=== PATIENT | female | born 1960 | race Caucasian/White ===

== ENCOUNTER → 2022-05-24 | Outpatient (CLI) | payer OTHER | LOC: LAB 07:43 → LAB SHORT 07:43 → PLD 07:43 | DX: Z12.83 Encounter for screening for malignant neoplasm of skin (principal); L82.1 Other seborrheic keratosis | CPT/HCPCS: 88305 ==

== ENCOUNTER → 2023-12-25 | Outpatient (CLI) | payer OTHER ==
[2023-12-26 16:42] LABS: HEPATITIS C AB CIA INTERP Negative (Negative); HEPATITIS C ANTIBODY CIA INDEX 0.02 IV
== END ==
LOC: LAB SHORT 14:15 → LAB 14:15
PROVIDERS: Family Medicine
DX: Z11.59 Encounter for screening for other viral diseases (principal)
CPT/HCPCS: 86803

== ENCOUNTER 2024-12-26 08:35 | Inpatient (IN) | payer MEDICARE, OTHER ==
[~2024-12-26 08:35] MED LIST: HYDHCL25 PO; SERT100 PO
[2024-12-26] MEDS ORDERED: Ibuprofen 600 MG Tab PO PRN (11:05)
[2024-12-26] MEDS ORDERED: Ondansetron 4 MG SoluTab MM PRN (11:05)
[2024-12-26] MEDS ORDERED: Polyethylene Glycol 3350 17 gm PO PRN (11:05)
[2024-12-26] MEDS ORDERED: TraZODone HCl 50 MG Tab PO PRN (11:05)
[2024-12-26] MEDS ORDERED: DiphenhydrAMINE HCl 50 MG Cap PO PRN (11:05)
[2024-12-26] MEDS ORDERED: OLANZapine ODT 10 MG Tab MM PRN (11:05)
[2024-12-26] MEDS ORDERED: LORazepam 2 MG Tab PO PRN (11:05)
[2024-12-26] MEDS ORDERED: FLU VACC TS2024-25(6MOS UP)/PF 45 MCG/0.5 ML SYRINGE IM SCH (11:05)
[2024-12-26] MEDS ORDERED: DiphenhydrAMINE HCl 50 MG/ML 1ML Vial IV PRN (11:10)
[2024-12-26] MEDS ORDERED: Acetaminophen 325 MG TABLET PO PRN (11:10)
[2024-12-26] MEDS ORDERED: Calcium Carbonate 500 MG Tab Chew PO PRN (11:10)
[2024-12-26] MEDS ORDERED: Aluminum Hydroxide 320MG/5ML 473 ML PO PRN (11:10)
[2024-12-26] MEDS ORDERED: Melatonin 3 MG Tab PO PRN (11:10)
[2024-12-26] MEDS ORDERED: SERT100 PO (11:24)
[2024-12-27] MEDS ORDERED: Multivitamins 1 Tab PO SCH (09:00)
== END 2024-12-26 12:51 | disposition home or self-care (01) | DRG 881 ==
LOC: BHU 08:35
PROVIDERS: ADMIT Psychiatry & Neurology Psychiatry
DX: F32.A Depression, unspecified (principal); R45.851 Suicidal ideations; F41.9 Anxiety disorder, unspecified; Z79.899 Other long term (current) drug therapy; F12.90 Cannabis use, unspecified, uncomplicated

== ENCOUNTER → 2025-03-30 | Outpatient (CLI) | payer MEDICARE, OTHER | LOC: LAB SHORT 18:16 → LAB 18:16 | DX: R41.89 Other symptoms and signs involving cognitive functions and awareness (principal); E78.00 Pure hypercholesterolemia, unspecified; M81.0 Age-related osteoporosis without current pathological fracture | CPT/HCPCS: 82306; 84443; 86592 ==

== ENCOUNTER → 2025-04-14 | Outpatient (CLI) | payer MEDICARE, OTHER ==
[2025-04-14 19:54] LABS: Percent Saturation 20.1 % (15.0-50.0)
== END ==
LOC: LAB SHORT 17:40 → LAB 17:40
DX: D51.9 Vitamin B12 deficiency anemia, unspecified (principal); E61.1 Iron deficiency
CPT/HCPCS: 82607; 82728; 82746; 83540; 83550